=== PATIENT | female | born 1990 | race Caucasian/White ===

== ENCOUNTER 2023-02-08 10:19 | Emergency (ER) | payer OTHER ==
[~2023-02-08] VITALS: Ht 175.3 cm; Wt 99.0 kg
[2023-02-08 10:25] VITALS: BP 109/74
[2023-02-08] MEDS ORDERED: AMOX-419 PO (11:10)
== END 2023-02-08 11:24 | disposition home or self-care (01) ==
LOC: ER 10:20
DX: S61.451A Open bite of right hand, initial encounter (principal); Z79.2 Long term (current) use of antibiotics; W55.01XA Bitten by cat, initial encounter; Y93.89 Activity, other specified; Y92.89 Other specified places as the place of occurrence of the external cause; Y99.8 Other external cause status
CPT/HCPCS: 99283